=== PATIENT | male | born 1995 | race African-American/Black ===

== ENCOUNTER 2019-11-16 22:53 | Emergency (ER) | payer OTHER ==
[2019-11-16] MEDS ORDERED: Lidocaine 1% (PF) 30 ML VIAL ONE (23:44)
--- NOTE | 2019-11-17 00:20 | RAD ---
3 views left fourth finger: 11/16/2019 COMPARISON: None HISTORY: Injury, trauma, pain FINDINGS: Dorsal and proximal dislocation of the fourth proximal interphalangeal joint noted. Postred uction imaging advised. IMPRESSION: Dislocated fourth proximal interphalangeal joint.
--- NOTE | 2019-11-17 07:25 | RAD ---
XR Finger(s) Lt Min 2 View History: Post reduction Comparison: Radiograph same day Findings: Satisfactory alignment proximal interphalangeal joint ring finger. Impression: Satisfactory postreduction alignment.
== END 2019-11-17 00:19 ==
LOC: NAV ERS 22:53
DX: S63.285A Dislocation of proximal interphalangeal joint of left ring finger, initial encounter (principal); W21.05XA Struck by basketball, initial encounter; Y93.67 Activity, basketball
CPT/HCPCS: 26770; J2001